=== PATIENT | female | born 1985 | race Caucasian/White ===

== ENCOUNTER → 2018-05-22 | Outpatient (CLI) | payer MEDICAID | END | disposition home or self-care (01) | LOC: U/S 12:20 | DX: O26.849 Uterine size-date discrepancy, unspecified trimester (principal); Z3A.00 Weeks of gestation of pregnancy not specified | CPT/HCPCS: 76805 ==

== ENCOUNTER 2018-09-05 12:38 | Outpatient (CLI) | payer MEDICAID ==
[2018-09-05 14:19] LABS: ALANINE AMINOTRANSFERASE 18 IU/L (13-69); ALBUMIN 3.4 g/dl (3.3-4.9); ALBUMIN/GLOBULIN RATIO 1.06; ALKALINE PHOSPHATASE 203 IU/L (42-121); ANION GAP 8 (5-13); ASPARTATE AMINO TRANSFERASE 21 IU/L (15-46); BILIRUBIN,INDIRECT 0.3 mg/dl (0-1.1); BILIRUBIN,TOTAL 0.3 mg/dl (0.2-1.3); BLOOD UREA NITROGEN 7 mg/dl (7-20); CALCIUM 9.5 mg/dl (8.4-10.2); CARBON DIOXIDE 24 mmol/L (21-31); CHLORIDE 104 mmol/L (97-110); CREATININE 0.45 mg/dl (0.44-1.00); Estimated GFR > 60 mL/min (>60); GLUCOSE 72 mg/dl (70-220); POTASSIUM 3.7 mmol/L (3.5-5.1); SODIUM 136 mmol/L (135-144); TOTAL PROTEIN 6.6 g/dl (6.1-8.1)
== END 2018-09-05 16:00 | disposition home or self-care (01) ==
LOC: OBT 12:38 → L-D 12:38 → OBT 16:00
DX: O26.613 Liver and biliary tract disorders in pregnancy, third trimester (principal); K83.1 Obstruction of bile duct; Z3A.36 36 weeks gestation of pregnancy
CPT/HCPCS: 76818; 80053; 83789

== ENCOUNTER 2018-09-13 10:20 | Inpatient (IN) | payer MEDICAID ==
[2018-09-13] MEDS: LACTATED RINGER'S 1,000 ML IV ×2 (12:29→19:31)
[2018-09-13] MEDS ORDERED: OXYTOCIN 30 UNITS/LR 500 ML IV ×3 (12:30)
[2018-09-13] MEDS ORDERED: MISOPROSTOL 200 MCG TAB PR (12:30)
[2018-09-13] MEDS ORDERED: MISOPROSTOL 50 MCG CAPSULE VAG (12:30)
[2018-09-13] MEDS ORDERED: CARBOPROST 250 MCG INJ IM (12:30)
[2018-09-13] MEDS ORDERED: METHYLERGONOVINE 0.2 MG INJ IM (12:30)
[2018-09-13] MEDS ORDERED: LIDOCAINE 1% (MPF) 30 ML INJ INJ (12:30)
[2018-09-13 13:28] LABS: ADD MAN DIFF? NO
[2018-09-13 13:31] LABS: WHITE BLOOD COUNT 8.5 10^3/ul (4.8-10.8)
[2018-09-13 13:31] LABS: ABNORMAL IP MESSAGE 1; BASOPHILS % 0.2 % (0.0-2.0); EOSINOPHILS # 0.2 10^3/ul (0.0-0.5); EOSINOPHILS % 2.4 % (0.0-7.0); HEMATOCRIT 36.9 % (37.0-47.0); HEMOGLOBIN 12.2 g/dl (12.0-16.0); LYMPHOCYTES # 1.4 10^3/ul (0.8-2.9); LYMPHOCYTES % 16.4 % (15.0-51.0); MEAN CORPUSCULAR HEMOGLOBIN 29.5 pg (29.0-33.0); MEAN CORPUSCULAR HGB CONC 33.1 g/dl (32.0-37.0); MEAN CORPUSCULAR VOLUME 89.3 fl (82.0-101.0); MEAN PLATELET VOLUME 13.4 fl (7.4-10.4); MONOCYTE # 0.4 10^3/ul (0.3-0.9); MONOCYTES % 4.7 % (0.0-11.0); NEUTROPHIL # 6.4 10^3/ul (1.6-7.5); NEUTROPHILS % 75.2 % (39.0-77.0); PLATELET COUNT 169 10^3/UL (140-415); RED BLOOD COUNT 4.13 10^6/ul (4.20-5.40); RED CELL DISTRIBUTION WIDTH 13.9 % (11.5-14.5)
[2018-09-13 13:32] LABS: POSITIVE DIFF @See below
[2018-09-13 13:54] LABS: INR 0.86; PROTIME 11.8 Sec (11.9-14.9); PT RATIO 0.9
[2018-09-13 13:55] LABS: PARTIAL THROMBOPLASTIN TIME 24.7 Sec (23.0-35.0)
[2018-09-13 15:02] LABS: RAPID PLASMA REAGIN NONREACTIVE (NR)
[2018-09-13 16:10] LABS: AMPHETAMINE/METHAMPHETAMINE Negative (NEGATIVE); BARBITURATES Negative (NEGATIVE); BENZODIAZEPINES Negative (NEGATIVE); CANNABINOIDS Negative (NEGATIVE); COCAINE Negative (NEGATIVE); OPIATES Negative (NEGATIVE)
[2018-09-13] MEDS: MISOPROSTOL 50 MCG CAPSULE PO ×2 (16:17→20:10)
[2018-09-14] MEDS: MISOPROSTOL 50 MCG CAPSULE PO (00:12)
[2018-09-14] MEDS: IBUPROFEN 600 MG TAB PO ×4 (03:16→17:21)
[2018-09-14] MEDS: OXYTOCIN 30 UNITS/LR 500 ML IV (03:36)
[2018-09-14] MEDS ORDERED: DIBUCAINE 1% 30 GM OINT TOP (05:30)
[2018-09-14] MEDS ORDERED: ZOLPIDEM 5 MG TAB PO (05:30)
[2018-09-14] MEDS ORDERED: HYDROCODONE/APAP (5/325) TAB PO ×2 (05:30)
[2018-09-14] MEDS ORDERED: OXYTOCIN 30 UNITS/LR 500 ML IV (05:30)
[2018-09-14] MEDS ORDERED: CARBOPROST 250 MCG INJ IM (05:30)
[2018-09-14] MEDS ORDERED: METHYLERGONOVINE 0.2 MG INJ IM (05:30)
[2018-09-14] MEDS ORDERED: MISOPROSTOL 200 MCG TAB PR (05:30)
[2018-09-14] MEDS: BENZOCAINE 20% 56 ML SPRAY TOP (05:56)
[2018-09-14] MEDS: WITCH HAZEL/GLYCERIN PAD PR (05:56)
[2018-09-14] MEDS: LANOLIN HPA 1 PKT TOP (05:56)
[2018-09-14] MEDS: ACETAMINOPHEN 1000MG/100ML IV 100 ML IVPB (06:32)
[2018-09-14 06:33] LABS: HEPATITIS B SURFACE ANTIGEN NEGATIVE (NEGATIVE)
[2018-09-14] MEDS: LACTATED RINGER'S 1,000 ML IV* ×2 (08:27→13:19)
[2018-09-14] MEDS: SENNA/DOCUSATE NA (8.6MG/50MG) TAB PO ×2 (08:47→21:27)
[2018-09-14] MEDS: MAGNESIUM HYDROXIDE 30ML CUP PO ×2 (08:47→21:27)
[2018-09-15] MEDS: IBUPROFEN 600 MG TAB PO ×5 (00:37→23:31)
[2018-09-15 07:26] LABS: ADD MAN DIFF? NO
[2018-09-15 07:31] LABS: BASOPHILS % 0.4 % (0.0-2.0); EOSINOPHILS # 0.3 10^3/ul (0.0-0.5); EOSINOPHILS % 3.2 % (0.0-7.0); HEMOGLOBIN 11.2 g/dl (12.0-16.0); LYMPHOCYTES # 2.6 10^3/ul (0.8-2.9); LYMPHOCYTES % 25.5 % (15.0-51.0); MEAN CORPUSCULAR HEMOGLOBIN 29.8 pg (29.0-33.0); MEAN CORPUSCULAR HGB CONC 32.9 g/dl (32.0-37.0); MEAN CORPUSCULAR VOLUME 90.4 fl (82.0-101.0); MEAN PLATELET VOLUME 12.7 fl (7.4-10.4); MONOCYTE # 0.6 10^3/ul (0.3-0.9); MONOCYTES % 5.6 % (0.0-11.0); NEUTROPHIL # 6.7 10^3/ul (1.6-7.5); NEUTROPHILS % 64.5 % (39.0-77.0); PLATELET COUNT 155 10^3/UL (140-415); RED BLOOD COUNT 3.76 10^6/ul (4.20-5.40); RED CELL DISTRIBUTION WIDTH 13.9 % (11.5-14.5)
[2018-09-15 07:31] LABS: WHITE BLOOD COUNT 10.3 10^3/ul (4.8-10.8)
[2018-09-15] MEDS: MAGNESIUM HYDROXIDE 30ML CUP PO ×2 (09:00→22:03)
[2018-09-15] MEDS: SENNA/DOCUSATE NA (8.6MG/50MG) TAB PO ×2 (09:00→22:03)
[2018-09-16] MEDS: IBUPROFEN 600 MG TAB PO ×2 (05:55→12:07)
[2018-09-16] MEDS: DIPHTH/TET/ACEL PERTUSS (ADULT) 0.5 ML VIAL IM* (09:00)
[2018-09-16] MEDS: SENNA/DOCUSATE NA (8.6MG/50MG) TAB PO (09:24)
[2018-09-16] MEDS: VARICELLA VACCINE LIVE/PF 1,350 UNIT/0.5 ML ML SC* (09:24)
[2018-09-16] MEDS: MAGNESIUM HYDROXIDE 30ML CUP PO (09:24)
[2018-09-16] MEDS: MEASLES,MUMPS,RUBELLA VACCINE INJ SC* (09:24)
== END 2018-09-16 15:49 | disposition home or self-care (01) | DRG 807 ==
LOC: L-D 10:20 → PP1 09-14 04:51
PROVIDERS: Obstetrics & Gynecology
PROC: 10E0XZZ Delivery of Products of Conception, External Approach (ICD-10-PCS; principal; 2018-09-14)
DX: O75.89 Other specified complications of labor and delivery (principal); Z37.0 Single live birth; E78.70 Disorder of bile acid and cholesterol metabolism, unspecified; O69.81X0 Labor and delivery complicated by cord around neck, without compression, not applicable or unspecified; Z3A.38 38 weeks gestation of pregnancy
CPT/HCPCS: 76815; 80307; 85025; 85610; 85730; 86592; 86850; 86900; 86901; 87340